=== PATIENT | male | born 2005 | race African-American/Black ===

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

== ENCOUNTER 2025-06-27 13:25 | Emergency (ER) | payer SELFPAY ==
[~2025-06-27] VITALS: Ht 180.3 cm; Wt 70.0 kg
[2025-06-27 13:30] VITALS: O2SAT 100
[2025-06-27 13:32] VITALS: BP 114/70; PULSE 80; RESP 16; TEMP 36.7; O2SAT 100
[2025-06-27 14:10] LABS: CLARITY URINE CLOUDY (CLEAR); COLOR URINE YELLOW (YELLOW); GLUCOSE URINE NEGATIVE (NEGATIVE); KETONES URINE NEGATIVE (NEGATIVE); LEUKOCYTE ESTERASE URINE 3+ (NEGATIVE); NITRITE URINE NEGATIVE (NEGATIVE); OCCULT BLOOD URINE NEGATIVE (NEGATIVE); PH URINE 7.5 (4.5-8.0); PROTEIN URINE TRACE (NEGATIVE); SPECIFIC GRAVITY URINE 1.025 (1.005-1.030); UROBILINOGEN URINE 1.0 E.U./dL (0.2-1.0)
[2025-06-27 14:43] LABS: BACTERIA URINE 2+; RBC URINE 0-2 /hpf (0-2); SQUAMOUS EPITHELIAL CELL URINE 1+ /lpf (RARE/1+); WBC URINE TNTC /hpf (0-2); YEAST URINE NONE SEEN
[2025-06-27] MEDS ORDERED: CEPH500C2 MT (15:03)
[2025-06-27] MEDS: LIDOCAINE HCL 1% 20ML VIAL INFIL ONE (15:19)
[2025-06-27] MEDS: CEFTRIAXONE SODIUM 500MG VIAL IM ONE (15:19)
[2025-06-30 04:12] LABS: CHLAMYDIA TRACHOMATIS NAA Negative (Negative); NEISSERIA GONORRHOEAE NAA Negative (Negative)
== END 2025-06-27 15:32 | disposition home or self-care (01) ==
LOC: ER 13:25
DX: N39.0 Urinary tract infection, site not specified (principal); J45.909 Unspecified asthma, uncomplicated
CPT/HCPCS: 99283; 87491; 87591; 81003; 87086; 96372; J0696; J2003

== ENCOUNTER 2025-07-10 13:30 | Emergency (ER) | payer SELFPAY ==
[~2025-07-10] VITALS: Ht 180.3 cm; Wt 67.0 kg
[~2025-07-10 13:30] MED LIST: CEPH500C2 MT
[2025-07-10 13:35] VITALS: O2SAT 99
[2025-07-10] MEDS: CEFTRIAXONE SODIUM 1G VIAL IM ONE (14:15)
[2025-07-10 14:18] LABS: CLARITY URINE CLOUDY (CLEAR); COLOR URINE YELLOW (YELLOW); GLUCOSE URINE NEGATIVE (NEGATIVE); KETONES URINE NEGATIVE (NEGATIVE); LEUKOCYTE ESTERASE URINE 3+ (NEGATIVE); NITRITE URINE NEGATIVE (NEGATIVE); OCCULT BLOOD URINE TRACE (NEGATIVE); PH URINE 6.5 (4.5-8.0); PROTEIN URINE NEGATIVE (NEGATIVE); SPECIFIC GRAVITY URINE 1.020 (1.005-1.030); UROBILINOGEN URINE 0.2 E.U./dL (0.2-1.0)
[2025-07-10 14:36] LABS: BACTERIA URINE TRACE; SQUAMOUS EPITHELIAL CELL URINE 1+ /lpf (RARE/1+); WBC URINE TNTC /hpf (0-2); YEAST URINE NONE SEEN
[2025-07-10] MEDS ORDERED: CEFP200T13 MT (14:48)
[2025-07-10 15:06] VITALS: BP 116/67; PULSE 62; RESP 16; TEMP 37; O2SAT 99
== END 2025-07-10 15:08 | disposition home or self-care (01) ==
LOC: ER 13:55
DX: N39.0 Urinary tract infection, site not specified (principal); J45.909 Unspecified asthma, uncomplicated
CPT/HCPCS: 81003; 87086; 96372; 99283; J0696; Z7610